=== PATIENT | male | born 1990 | race Caucasian/White ===

== ENCOUNTER 2017-11-15 22:46 | Inpatient (IN) | payer BC, OTHER ==
[~2017-11-15] VITALS: Ht 175.3 cm; Wt 77.1 kg
--- NOTE | 2017-11-15 22:46 | NUR ---
BIBA TO ER BED 3
[2017-11-15 22:48] VITALS: BP 122/64
[2017-11-15] MEDS ORDERED: NACL 0.9% 2,000 ML IV SCH (22:55)
[2017-11-15] MEDS ORDERED: HYDR25CA1 PO (23:00)
--- NOTE | 2017-11-15 23:00 | NUR ---
EMS GAVE NARCAN 0.5MG IN THE FIELD
--- NOTE | 2017-11-15 23:00 | NUR ---
PT BIB [facility] C/O ALOC/OD/SZ POSS OD ON HYDROXYZINE PAMOATE 50MG DAILY/PRN. [facility]-BS103 HX DEPRESSION, SUICIDE ATTEMPT. NO N/V/D; SKIN IS PINK/WARM/DRY; AAOX4 WITH EVEN AND STEADY GAIT; LUNGS CLEAR BL; PT DENIES ANY FEVER, CP, SOB, OR COUGH AT THIS TIME; PATIENT STATES PAIN OF 0/10 AT THIS TIME; PATIENT POSITIONED FOR COMFORT; HOB ELEVATED; BEDRAILS UP X2; BED DOWN. ER MD MADE AWARE OF PT STATUS.
--- NOTE | 2017-11-15 23:10 | NUR ---
# 16 FR Napier catheter with 10 ml utilizing sterile technique. Immediate return of 100 ml YELLOW urine noted. Bedside drainage bag placed below level of bladder. Urine sample collected and sent to lab. Pt tolerated procedure WELL.
--- NOTE | 2017-11-15 23:15 | NUR ---
2 LITERS NS BOLUS GIVEN PER MD ORDER, UNABLE TO CHART ON EMAR. IT CALLED AND WORKING ON IT.
--- NOTE | 2017-11-15 23:17 | NUR ---
ER MD DR ROBB CALLED POISON CONTROL-MONITOR FOR SZ, SOB. SCOTTIE BRONSON AND JOSEPH MENDOZA SPOKE TO PT FAMILY.
--- NOTE | 2017-11-15 23:20 | NUR ---
CT AT BEDSIDE
[2017-11-15 23:41] LABS: BARBITURATE, URINE NEG. ng/ml (NEG <=200); BENZODIAZEPINE, URINE NEG. ng/mL (NEG <=200); CANNABINOID, URINE NEG. ng/mL (NEG <=50); COCAINE, URINE NEG. ng/mL (NEG <=300); OPIATE, URINE NEG. ng/mL (NEG <=2000); PHENCYCLIDINE SCREEN,URINE NEG. ng/mL (NEG <=25)
[2017-11-16] VITALS (10 sets, daily range): BP systolic 111–140; BP diastolic 57–103
--- NOTE | 2017-11-16 00:05 | NUR ---
DAD AT BEDSIDE. PT RESTINC COMFORTABLY.
--- NOTE | 2017-11-16 00:05 | NUR ---
NS 2 LITERS COMPLETED W/O PROBLEMS.
[2017-11-16 00:06] LABS: BASOPHILS # (AUTO) 0.1 K/uL (0.00-0.22); BASOPHILS % (AUTO) 0.9 % (0.0-2.0); EOSINOPHILS # (AUTO) 0.1 K/uL (0-0.4); EOSINOPHILS % (AUTO) 0.9 % (0.0-4.0); HEMATOCRIT 41.9 % (36-52); HEMOGLOBIN 14.1 g/dL (12.0-18.0); LYMPHOCYTES # (AUTO) 0.5 K/uL (2.0-11.5); MEAN CORPUSCULAR HEMOGLOBIN 30 pg (27-31); MEAN CORPUSCULAR HGB CONC 34 g/dL (33-37); MEAN CORPUSCULAR VOLUME 89 fL (80-94); MONOCYTES # (AUTO) 0.3 K/uL (0.8-1.0); MONOCYTES % (AUTO) 3.3 % (1.7-9.3); NEUTROPHILS # (AUTO) 8.6 K/uL (1.8-7.7); NEUTROPHILS % (AUTO) 89.5 % (42.2-75.2); PLATELET COUNT (AUTO) 233 K/uL (140-450); RED BLOOD CELL COUNT(AUTO) 4.69 MIL/uL (4.20-6.10); RED CELL DISTRIBUTION WIDTH 11.9 % (11.6-13.7); WHITE BLOOD COUNT (AUTO) 9.6 K/uL (4.8-10.8)
[2017-11-16 00:19] LABS: APPEARANCE,URINE CLEAR (CLEAR); BILIRUBIN,URINE NEGATIVE (NEGATIVE); BLOOD, URINE NEGATIVE (NEGATIVE); COLOR,URINE YELLOW (YELLOW); LEUKOCYTE ESTERASE ,URINE NEGATIVE (NEGATIVE); NITRITE, URINE NEGATIVE (NEGATIVE); PH,URINE 5.5 (5.0-9.0); UGLUCOSE NEGATIVE (NEGATIVE)
[2017-11-16 00:23] LABS: ACETAMINOPHEN 6.3 ug/ml (10-30); ALBUMIN 4.5 g/dL (3.4-5.0); ASPARTATE AMINOTRANSFERASE 20 U/L (15-37); CARBON DIOXIDE 24.1 mmol/L (21-32); CHLORIDE 110 mmol/L (98-107); CREATININE 1.3 mg/dL (0.7-1.3); GFR ARICAN-AMERICAN 85 mL/min (>90); GLUCOSE 112 mg/dL (74-106); POTASSIUM 4.1 mmol/L (3.5-5.1); SODIUM SERUM 147 mmol/L (136-145); TOTAL BILIRUBIN 0.4 mg/dL (0.0-1.0); UREA NITROGEN, BLOOD 14 mg/dL (7-18)
[2017-11-16 00:30] LABS: MAGNESIUM 1.6 mg/dL (1.8-2.4); THYROID STIMULATING HORMONE 4.01 uIU/mL (0.34-3.74)
[2017-11-16 00:34] LABS: SALICYLATE < 2.8 mg/dL (2.8-20.0)
[2017-11-16 00:56] LABS: LYMPHOCYTES % (AUTO) 5.4 % (20.5-51.1)
[2017-11-16 01:09] LABS: HYALINE CASTS, URINE 0-10 /LPF (None Seen); RBC,URINE 0-5 (RARE) /HPF (0-5); WBC,URINE 0-5 (RARE) /HPF (0-5)
[2017-11-16] MEDS ORDERED: ONDANSETRON 4 MG/2 ML VIAL IM/IVP PRN (01:20)
[2017-11-16] MEDS ORDERED: HYDROcodone/APAP 7.5/325 MG 1 TAB PO PRN (01:20)
[2017-11-16] MEDS ORDERED: LORazepam 0.5 MG TAB PO PRN (01:20)
[2017-11-16] MEDS ORDERED: DOCUSATE SODIUM 100 MG GELCAP PO PRN (01:20)
[2017-11-16] MEDS ORDERED: ACETAMINOPHEN 325 MG TAB PO PRN (01:20)
[2017-11-16] MEDS ORDERED: ZOLPIDEM 5 MG TAB PO PRN (01:20)
[2017-11-16] MEDS ORDERED: MORPHINE SULFATE 2 MG/ML SYR IVP PRN (01:20)
--- NOTE | 2017-11-16 01:26 | NUR ---
FAMILY AT BEDSIDE, PT ALERT, TALKING AND ANSWERING QUESTIONS.
[2017-11-16 01:46] LABS: PROTHROMBIN TIME 11.5 secs (10.8-13.4)
--- NOTE | 2017-11-16 01:54 | NUR ---
Patient will be admitted to care of DR ESCOBEDO. Admited to ICU. Will go to room6. Belongings list completed. Report to JOSEPH CRUZ.
[2017-11-16 01:55] LABS: CHOL/HDL RATIO 3.7 (1-4.5); FREE T4 (FREE THYROXINE) 1.02 ng/dL (0.76-1.46); PHOSPHORUS 3.9 mg/dL (2.5-4.9)
--- NOTE | 2017-11-16 01:55 | NUR ---
RECEIVED PT TRANSFERRED FROM ER VIA [facility], OBTAINED REPORT FORM JOSEPH TRONCOSO AT BEDSIDE, PT IS AAOX1, ABLE TO FOLLOW SIMPLE COMMANDS, SLURRED AND DELAYED SPEECH, DENIES PAIN, NO S/S OF DISTRESS, CLEAR LUNG SOUNDS, ON RA. DENIES CHEST PAIN, ST ON LIBRARIAN ASSISTANT, SOFT ABDOMEN WITH ACTIVE BOWEL SOUNDS, BAGLEY CATHETER IN PLACE WITH CLEAR YELLOW URINE NOTED, SKIN IS INTACT, WARM AND DRY TO TOUCH, PERIPHERAL LINE TO RIGHT FOREARM 18GA, PATENT AND SL. ABLE TO MOVE ALL EXTREMITIES, SLIGHT GENERALIZED WEAKNESS NOTED. REORIENTED PT TO ROOM AND POC, PT IS CONFUSED AT THIS TIME, HOB ELEVATED 30 DEGREES, SAFETY PRECAUTION AND SEIZURE PRECAUTION IN PLACE, WILL CONTINUE TO MONITOR.
[2017-11-16] MEDS: NACL 0.9% 1,000 ML IV SCH ×2 (02:11→10:45)
[2017-11-16] MEDS ORDERED: MIDAZOLAM 2 MG/2 ML VIAL IV SCH (03:30)
--- NOTE | 2017-11-16 04:00 | NUR ---
PT IS REST IN BED WITH ANXIETY, FAMILY MEMBERS AT BEDSIDE, DR. MARTIN ABLE TO ANSWER THEIR QUESTIONS. NO CHANGE OF CONDITION AT THIS TIME.
[2017-11-16] MEDS ORDERED: LORazepam 2 MG/ML VIAL IVP SCH (04:05)
--- NOTE | 2017-11-16 05:34 | NUR ---
DR. GARVIN ASSESS PT AT BEDSIDE.
--- NOTE | 2017-11-16 06:00 | NUR ---
NO CHANGE OF CONDITION AT THIS TIME, PT IS CALM, FATHER AT BEDSIDE.
[2017-11-16 06:09] LABS: BASOPHILS # (AUTO) 0.2 K/uL (0.00-0.22); BASOPHILS % (AUTO) 2.1 % (0.0-2.0); EOSINOPHILS # (AUTO) 0.1 K/uL (0-0.4); EOSINOPHILS % (AUTO) 0.9 % (0.0-4.0); HEMATOCRIT 42.7 % (36-52); HEMOGLOBIN 14.4 g/dL (12.0-18.0); LYMPHOCYTES # (AUTO) 0.7 K/uL (2.0-11.5); LYMPHOCYTES % (AUTO) 7.5 % (20.5-51.1); MEAN CORPUSCULAR HEMOGLOBIN 30 pg (27-31); MEAN CORPUSCULAR HGB CONC 34 g/dL (33-37); MEAN CORPUSCULAR VOLUME 90 fL (80-94); MONOCYTES # (AUTO) 0.5 K/uL (0.8-1.0); MONOCYTES % (AUTO) 5.2 % (1.7-9.3); NEUTROPHILS # (AUTO) 8.3 K/uL (1.8-7.7); NEUTROPHILS % (AUTO) 84.3 % (42.2-75.2); PLATELET COUNT (AUTO) 227 K/uL (140-450); RED BLOOD CELL COUNT(AUTO) 4.76 MIL/uL (4.20-6.10); RED CELL DISTRIBUTION WIDTH 12.1 % (11.6-13.7); WHITE BLOOD COUNT (AUTO) 9.8 K/uL (4.8-10.8)
[2017-11-16 06:40] LABS: ACETAMINOPHEN 1.1 ug/ml (10-30); ALBUMIN 4.7 g/dL (3.4-5.0); ANION GAP 15.5 (8-16); CREATININE 1.1 mg/dL (0.7-1.3); MAGNESIUM 1.6 mg/dL (1.8-2.4); PHOSPHORUS 4.9 mg/dL (2.5-4.9); POTASSIUM 3.5 mmol/L (3.5-5.1); TOTAL BILIRUBIN 0.6 mg/dL (0.0-1.0)
[2017-11-16] MEDS ORDERED: MECLIZINE 25 MG TAB PO PRN (06:45)
--- NOTE | 2017-11-16 07:20 | NUR ---
REPORT GIVEN TO JOSEPH SANTILLAN AT BEDSIDE FOR CONTINUE OF CARE, PT IS IN STABLE CONDITION AT THIS TIME.
--- NOTE | 2017-11-16 08:00 | NUR ---
AWAKE, DOES NOT FOLLOW COMMANDS, SPEECH INCOMPREHENSIBLE. CID BUT WITH SL WEAKNESS. IV 0.9NS INFUSING 100 ML/HR VIA RT FOREARM. IV SITE INTACT AND PATENT. BAGLEY CATH IN PLACE DRAINING CLEAR YELLOWISH URINE.
--- NOTE | 2017-11-16 08:20 | NUR ---
DR. VELAZQUEZ HERE TO SEE AND EXAMINE PT. PT'S FATHER AT BEDSIDE.
--- NOTE | 2017-11-16 08:25 | NUR ---
PATIENT HAS BEEN SCREENED AND CATEGORIZED LOW NUTRITION RISK. PATIENT WILL BE SEEN IN 7 DAYS. 11/22/[address]
--- NOTE | 2017-11-16 09:30 | NUR ---
PATIENT IS MORE AWAKE AT THIS TIME.
[2017-11-16] MEDS ORDERED: MAG SULF 2000 MG/WATER PREMIX 100 ML IV SCH (09:45)
[2017-11-16] MEDS: NACL 0.45% 1,000 ML IV SCH ×2 (11:38→21:48)
--- NOTE | 2017-11-16 11:45 | NUR ---
PATIENT'S FATHER REQUESTED TO SPEAK TO RESIDENT IN CHARGE OF HIS SON. RESIDENT PHYSICIAN DR. GARVIN MADE AWARE.
[2017-11-16] MEDS ORDERED: PROBIOTIC SCREEN 1 EA MISC MC PRN (12:25)
--- NOTE | 2017-11-16 12:28 | NUR ---
CM NOTE PER PERSONAL COUNSELOR LUIS, REVIEWS SHOULD ONLY BE SENT TO [facility]. INITIAL REVIEW FAXED TO [facility] [phone] D[facility] # [phone].
--- NOTE | 2017-11-16 13:00 | NUR ---
RESIDENT PHYSICIAN, DR. GARVIN TALKING TO PATIENT'S MOTHER GOPI REGARDING UPDATES ON PATIENT'S CONDITION.
--- NOTE | 2017-11-16 19:23 | NUR ---
REPORT GIVEN TO JUSTICE TURNER RN. PATIENT WILL BE TRANSFERRED TO TELE UNIT RM 124B
--- NOTE | 2017-11-16 19:40 | NUR ---
RECEIVED REPORT FROM PROMOTIONS ASSOCIATE NURSE. PT RESTING IN BED WITH EYES CLOSED. AROUSES EASILY. NO S/S OF DISTRESS OBSERVED. BAGLEY CATH IN PLACE DRAINING LIGHT YELLOW URINE VIA GRAVITY. CALL LIGHT WITHIN REACH. WILL CONTINUE TO MONITOR.
--- NOTE | 2017-11-16 21:50 | NUR ---
NEW BAG OF NS 0.45% STARTED. NO DISTRESS NOTED. CALL LIGHT WITHIN REACH.
--- NOTE | 2017-11-16 22:05 | NUR ---
PT AWAKE, LYING COMFORTABLY IN BED. NO C/O PAIN OR DISCOMFORT. CALL LIGHT WITHIN REACH.
[2017-11-17] VITALS: BP 116/68
--- NOTE | 2017-11-17 00:40 | NUR ---
PT SLEEPING. NO S/S OF DISTRESS. SAFETY PRECAUTION IN PLACE. CALL LIGHT WITHIN REACH.
--- NOTE | 2017-11-17 03:05 | NUR ---
PT SLEEPING BUT WAKES EASILY. RESPIRATIONS REGULAR, EVEN AND UNLABORED.
[2017-11-17 04:00] VITALS: BP 117/66
--- NOTE | 2017-11-17 05:30 | NUR ---
PT IN BED, AWAKE. NO C/O PAIN OR DISCOMFORT. CALL LIGHT WITHIN REACH.
[2017-11-17 06:27] LABS: T4 (THYROXINE) 6.8 ug/dL (4.5-12.0)
--- NOTE | 2017-11-17 07:25 | NUR ---
ENDORSED PT TO DAY SHIFT NURSE. PT IN STABLE CONDITION.
[2017-11-17 07:56] LABS: BASOPHILS # (AUTO) 0.2 K/uL (0.00-0.22); BASOPHILS % (AUTO) 3.8 % (0.0-2.0); EOSINOPHILS # (AUTO) 0.1 K/uL (0-0.4); EOSINOPHILS % (AUTO) 1.2 % (0.0-4.0); HEMATOCRIT 43.2 % (36-52); HEMOGLOBIN 14.7 g/dL (12.0-18.0); LYMPHOCYTES # (AUTO) 1.3 K/uL (2.0-11.5); LYMPHOCYTES % (AUTO) 20.2 % (20.5-51.1); MEAN CORPUSCULAR HEMOGLOBIN 31 pg (27-31); MEAN CORPUSCULAR HGB CONC 34 g/dL (33-37); MEAN CORPUSCULAR VOLUME 91 fL (80-94); MONOCYTES # (AUTO) 0.5 K/uL (0.8-1.0); NEUTROPHILS # (AUTO) 4.3 K/uL (1.8-7.7); NEUTROPHILS % (AUTO) 66.8 % (42.2-75.2); PLATELET COUNT (AUTO) 207 K/uL (140-450); RED BLOOD CELL COUNT(AUTO) 4.78 MIL/uL (4.20-6.10); WHITE BLOOD COUNT (AUTO) 6.4 K/uL (4.8-10.8)
--- NOTE | 2017-11-17 08:00 | NUR ---
RECEIVED PATIENT REPORT FROM JOSEHP PEREA AT BEDSIDE. PATIENT ALERT AWAKE ORIENTED X4, DENIES PAIN AT THIS TIME. INITIAL ASSESSMENT INITIATED. WITH IVF ON GOING AND INFUSING WELL. ON MONITOR SHOWS SR. CALL LIGHT WITHIN REACH. VITALS STABLE. WILL CONTINUE TO MONITOR.
--- NOTE | 2017-11-17 08:20 | NUR ---
ROUNDS WITH MD AT BEDSIDE AND DISCUSSED THE PLAN OF CARE.
[2017-11-17 08:29] LABS: ALBUMIN 4.4 g/dL (3.4-5.0); ASPARTATE AMINOTRANSFERASE 20 U/L (15-37); BILIRUBIN,DIRECT 0.1 mg/dL (0.0-0.3)
[2017-11-17 08:31] LABS: ACETAMINOPHEN < 0.5 ug/ml (10-30); ANION GAP 15.5 (8-16); CARBON DIOXIDE 26.5 mmol/L (21-32)
[2017-11-17 08:33] VITALS: BP 129/80
--- NOTE | 2017-11-17 08:52 | NUR ---
PATIENT CHANGED TO MS STATUS, REMOVED TELEMETRY BOX, BAGLEY CATHETER REMOVED.
--- NOTE | 2017-11-17 09:00 | NUR ---
PATIENT ASSISTED TO THE BATHROOM, AMBULATE WELL. PATIENT FATHER AT BEDSIDE TALKING TO THE PATIENT. WILL CONTINUE TO MONITOR.
--- NOTE | 2017-11-17 10:15 | NUR ---
BELEN FROM POISON CONTROL CALLED AND ASKED FOR UPDATES.
--- NOTE | 2017-11-17 11:01 | NUR ---
FAXED CONCURRENT REVIEW TO [facility] [phone] PHONE [facility]ARCI [phone]
--- NOTE | 2017-11-17 14:38 | NUR ---
PATIENT AMBULATING IN THE HALLWAY ACCOMPANIED BY HIS FATHER, DENIES PAIN. WILL CONTINUE TO MONITOR.
[2017-11-17 16:00] VITALS: BP 133/84
--- NOTE | 2017-11-17 16:35 | NUR ---
SEEN BY DR. DELONG AND EVALUATED PATIENT, WITH ORDER TO D/C FROM HER STANDPOINT, DR. GARVIN MADE AWARE.
--- NOTE | 2017-11-17 17:40 | NUR ---
DR. GARVIN SPOKE TO PT. MOTHER REGARDING PT. D/C.
[2017-11-17] MEDS ORDERED: SERT50TA PO (17:50)
--- NOTE | 2017-11-17 18:15 | NUR ---
D/C HOME VIA WHEELCHAIR ACCOMPANIED BY PT. MOTHER. AWAKE, ALERT, AND ORIENTED X4. SPEECH CLEAR. NO C/O PAIN. NO SOB, NOTED. CALM, QUIET AND COOPERATIVE. IN STABLE CONDITION. INFORMED CHARGE NURSE TRAVIS JIANG.
== END 2017-11-17 18:15 | disposition home or self-care (01) | DRG 917 ==
LOC: MED 22:46 → MIC 11-16 01:19 → MTU 11-16 19:50
PROVIDERS: ADMIT Family Medicine Sports Medicine; ATTEND Family Medicine Sports Medicine
DX: T39.1X1A Poisoning by 4-Aminophenol derivatives, accidental (unintentional), initial encounter (principal); N17.0 Acute kidney failure with tubular necrosis; I63.411 Cerebral infarction due to embolism of right middle cerebral artery; G92 Toxic encephalopathy; F33.1 Major depressive disorder, recurrent, moderate; E87.0 Hyperosmolality and hypernatremia; G90.9 Disorder of the autonomic nervous system, unspecified; T45.0X1A Poisoning by antiallergic and antiemetic drugs, accidental (unintentional), initial encounter; Z91.5 Personal history of self-harm; Z91.14 Patient's other noncompliance with medication regimen; Y92.89 Other specified places as the place of occurrence of the external cause; E02 Subclinical iodine-deficiency hypothyroidism; E83.42 Hypomagnesemia; E78.5 Hyperlipidemia, unspecified
CPT/HCPCS: 36415; 51702; 70450; 71045; 80048; 80053; 80076; 80305; 81001; 82150; 83036; 83605; 83690; 83735; 83880; 84100; 84436; 84439; 84443; 84479; 84484; 85025; 85610; 85730; 87040; 87081; 93005; 93880; 96360; 99285; G0480; G0482; J2060; J2250; J3475; J7030; Q0092

== ENCOUNTER 2017-12-07 01:45 | Inpatient (IN) | payer BC ==
[~2017-12-07] VITALS: Ht 177.8 cm; Wt 88.6 kg
[~2017-12-07 01:45] MED LIST: HYDR25CA1 PO; SERT50TA PO
[2017-12-07 01:50] VITALS: BP 144/91
--- NOTE | 2017-12-07 02:05 | NUR ---
TO ER BED 1
--- NOTE | 2017-12-07 02:06 | NUR ---
REPORTED TO POISON CONTROL AND SPOKEN TO TREVOR , AND ADVISES IVF, EKG TO LOOK FOR WIDE QRS INTERVAL,( TO GIVE SODUIM BICARBONATE ), ATIVAN FOR SEIZURES, STAT ASA, AND TYLENOL LEVEL.TO OBSERVE FOR HALLCINATION AND SX.
[2017-12-07] MEDS ORDERED: NACL 0.9% 1,000 ML IV ONE (02:30)
--- NOTE | 2017-12-07 02:30 | NUR ---
PT IS BIB FAMILY FOR DRUG OVERDOSE, PER FAMILY PT ATTEMTPED SUICIDE 3 WEEKS AGO IN THE SAME MANNER, PT TOOK COLD AND FLU MEDICATION, SLEEPING AID PILLS, AND TYLENOL PM AROUND 5PM YESTERDAY PER FAMILY. PT IS DEPRESSED FROM HIS DOG DYING ON SHAHNAZ. PER FAMILY PT DOES NOT HAVE FRIENDS AND HAS HX OF MAJOR DEPRESSION. PT IS ABLE TO AMBULATE, UNSTEADY GAIT. PT IS AA&O TO HIMSELF, BIRTHDAY, AND LOCATION. PT HAS DRYNESS NOTED TO LIPS. PT BELONGINGS ARE W/ FAMILY. PT IS IN BED SIDE RAILS UP X2, WILL CONTINUE TO MONITOR.
--- NOTE | 2017-12-07 02:45 | NUR ---
PT TAKES SERTRALINE 50MG ONCE DAILY, AND HYDROXYZINE HCL 25MG ONCE DAILY. PT HAS NOT TAKEN HYDROXYZINE FOR 1 WEEK .
[2017-12-07 02:48] LABS: BASOPHILS # (AUTO) 0.1 K/uL (0.00-0.22); BASOPHILS % (AUTO) 1.5 % (0.0-2.0); EOSINOPHILS % (AUTO) 0.3 % (0.0-4.0); HEMATOCRIT 43.6 % (36-52); HEMOGLOBIN 14.7 g/dL (12.0-18.0); LYMPHOCYTES # (AUTO) 0.9 K/uL (2.0-11.5); LYMPHOCYTES % (AUTO) 14.7 % (20.5-51.1); MEAN CORPUSCULAR HEMOGLOBIN 30 pg (27-31); MEAN CORPUSCULAR HGB CONC 34 g/dL (33-37); MEAN CORPUSCULAR VOLUME 89 fL (80-94); MONOCYTES # (AUTO) 0.1 K/uL (0.8-1.0); MONOCYTES % (AUTO) 1.9 % (1.7-9.3); NEUTROPHILS # (AUTO) 5.2 K/uL (1.8-7.7); PLATELET COUNT (AUTO) 263 K/uL (140-450); RED BLOOD CELL COUNT(AUTO) 4.91 MIL/uL (4.20-6.10); RED CELL DISTRIBUTION WIDTH 11.9 % (11.6-13.7); WHITE BLOOD COUNT (AUTO) 6.3 K/uL (4.8-10.8)
[2017-12-07 02:59] LABS: ANION GAP 14.4 (8-16); CARBON DIOXIDE 28.3 mmol/L (21-32); CHLORIDE 104 mmol/L (98-107); CREATININE 1.2 mg/dL (0.7-1.3); GFR ARICAN-AMERICAN 93 mL/min (>90); GLUCOSE 140 mg/dL (74-106); POTASSIUM 3.7 mmol/L (3.5-5.1); SODIUM SERUM 143 mmol/L (136-145); UREA NITROGEN, BLOOD 10 mg/dL (7-18)
[2017-12-07 03:04] LABS: NEUTROPHILS % (AUTO) 81.6 % (42.2-75.2)
[2017-12-07 03:05] LABS: ALBUMIN 4.6 g/dL (3.4-5.0); ASPARTATE AMINOTRANSFERASE 21 U/L (15-37); SALICYLATE < 2.8 mg/dL (2.8-20.0); TOTAL BILIRUBIN 0.7 mg/dL (0.0-1.0)
[2017-12-07 03:50] LABS: APPEARANCE,URINE CLEAR (CLEAR); BILIRUBIN,URINE NEGATIVE (NEGATIVE); BLOOD, URINE NEGATIVE (NEGATIVE); COLOR,URINE YELLOW (YELLOW); LEUKOCYTE ESTERASE ,URINE NEGATIVE (NEGATIVE); NITRITE, URINE NEGATIVE (NEGATIVE); PH,URINE 6.5 (5.0-9.0); UGLUCOSE NEGATIVE (NEGATIVE)
[2017-12-07 04:06] LABS: BARBITURATE, URINE NEG. ng/ml (NEG <=200); BENZODIAZEPINE, URINE NEG. ng/mL (NEG <=200); CANNABINOID, URINE NEG. ng/mL (NEG <=50); COCAINE, URINE NEG. ng/mL (NEG <=300); OPIATE, URINE NEG. ng/mL (NEG <=2000); PHENCYCLIDINE SCREEN,URINE NEG. ng/mL (NEG <=25)
--- NOTE | 2017-12-07 04:27 | NUR ---
PT IS IN BED, RESTLESS, PT CONTINUES TO HAVE SPEECH THAT DOES NOT MAKE SENSE AND QUESTIONS THAT ARE NOT APPROPRIATE, PT IS COOPERATIVE, SISTER AND BROTHER AT BEDSIDE TALKING W/ PT.
[2017-12-07] MEDS ORDERED: LORazepam 1 MG TAB PO ONE (04:35)
--- NOTE | 2017-12-07 04:50 | NUR ---
PT GIVEN 2 TABS OF ATIVAN, PT SPIT OUT AND THREW 1/2 PILL ON FLOOR.
[2017-12-07] MEDS ORDERED: ONDANSETRON 4 MG/2 ML VIAL IVP PRN (05:30)
--- NOTE | 2017-12-07 05:35 | NUR ---
PT RESTING IN BED, LESS RESTLESS, WILL CONTINUE TO MONITOR
--- NOTE | 2017-12-07 05:44 | NUR ---
AWAITING ROOM TO BE READY, HAVE ADMITING ORDERS.
[2017-12-07 06:20] VITALS: BP 139/89
--- NOTE | 2017-12-07 06:20 | NUR ---
Admitted from ER, with chief complaint of ALOC, DX 5150, BENADRYL OD. PT FAMILY AT BEDSIDE. 27 y/o, Male, AWAKE, CONFUSED, SLURRING WORDS, CALM AT THIS TIME BUT OCCASIONALLY TRIES TO GET OUT OF BED. VOCATIONAL REHABILITATION SUPERVISOR IN PLACE. DISCUSSED AND REVIEWED PLAN OF CARE WITH PT AND PT FAMILY WHO VERBALIZED UNDERSTANDING. IV ACCESS ASYMPTOMATIC, PATENT AND INTACT. WILL ADMINISTER IVF ORDERED. oriented to call light, bed, phone,television, bathroom, smoking policy, visiting hours, procedures, ID bracelet on. Belongings list checked. ALL NEEDS MET. 1:1 SITTER AT BEDSIDE WITH CLOSE MONITORING, ENVIRONMENT CHECKED. SAFETY MEASURES ENSURED. CALL LIGHT WITHIN REACH.
--- NOTE | 2017-12-07 06:25 | NUR ---
Patient will be admitted to care of DR. JANG. Admited to TELE. Will go to room 110-A. Belongings list completed. Report to JACKI.
[2017-12-07 06:36] LABS: PROTHROMBIN TIME 11.6 secs (10.8-13.4)
[2017-12-07 06:47] LABS: CHOL/HDL RATIO 4.2 (1-4.5); FREE T4 (FREE THYROXINE) 1.1 ng/dL (0.76-1.46); MAGNESIUM 1.7 mg/dL (1.8-2.4); PHOSPHORUS 4.5 mg/dL (2.5-4.9); THYROID STIMULATING HORMONE 3.07 uIU/mL (0.34-3.74)
[2017-12-07] MEDS: NACL 0.9% 1,000 ML IV SCH ×4 (06:49→21:00)
--- NOTE | 2017-12-07 07:20 | NUR ---
ENDORSED PLAN OF CARE TO AM NURSE. CONDITION STABLE.
--- NOTE | 2017-12-07 07:22 | NUR ---
RECEIVED PATIENT REPORT AT BEDSIDE FROM NIGHT NURSE. PATIENT IS AWAKE ALERT AND ORIENTED X1 AND SHOWS NO S/S OF ACUTE DISTRESS ON ROOM AIR, PATIENT HAS NO C/O PAIN. IV NOTED ON THE LEFT FA WITH IVF'S INFUSING WELL. ON TELE MONITOR. SKIN INTACT. PATIENT WAS EXPLAINED POC, HOSPITAL ENVIRONMENT, AND USE OF CALL LIGHT FOR ASSISTANCE; HOWEVER PATIENT IS UNABLE TO COMPREHEND AT THIS TIME, HE DOES FOLLOW COMMANDS, REINFORCEMENT WILL BE NEEDED. FALL, SAFETY PRECAUTIONS ARE IN PLACE. BED IN LOW POSITION WITH CALL LIGHT WITHIN REACH.
[2017-12-07 08:05] VITALS: BP 138/90
--- NOTE | 2017-12-07 08:05 | NUR ---
DR JANG NOTIFIED OF PATIENT'S 140 HR. PHYSICIAN TO SEE PATIENT.
[2017-12-07] MEDS: PANTOPRAZOLE 40 MG INJ VIAL IVP SCH (08:41)
[2017-12-07] MEDS: DOCUSATE SODIUM 100 MG GELCAP PO SCH ×2 (08:42→21:00)
--- NOTE | 2017-12-07 08:42 | NUR ---
ADMINISTERED IVP PROTONIX 40 MG; DID NOT GIVE COLACE 100 MG PO BC PATIENT HAS FLAT AFFECT AND UNABLE TO RESPOND IF HE COULD SWALLOW MEDICATION. WILL NOTIFY 'S ONCE AVAILABLE.
--- NOTE | 2017-12-07 10:12 | NUR ---
PATIENT HAS BEEN SCREENED AND CATEGORIZED LOW NUTRITION RISK. PATIENT WILL BE SEEN WITHIN 7 DAYS OF ADMISSION. 12/13/[address]
[2017-12-07] MEDS ORDERED: MAGNESIUM OXIDE 400 MG TAB PO SCH (12:00)
--- NOTE | 2017-12-07 12:15 | NUR ---
PATIENT ASSISTED TO AMB TO RESTROOM, PATIENT'S HAS UNSTEADY GAIT AND NEEDS 2 PERSON ASSIST.
--- NOTE | 2017-12-07 12:55 | NUR ---
PATIENT BEING SEE BY DR BEDOYA.
--- NOTE | 2017-12-07 12:59 | NUR ---
ADMINISTERED SCHEDULED MEDICATIONS, PATIENT SWALLOWED WITHOUT DIFFICULTY. PATIENT'S FAMILY AT BEDSIDE ASSISTING WITH PATIENT'S ADL'S. SITTER AT BEDSIDE
[2017-12-07 13:04] VITALS: BP 127/85
--- NOTE | 2017-12-07 14:08 | NUR ---
CM NOTE PER ICE CREAM SERVER LUIS, REVIEWS SHOULD ONLY BE SENT TO [facility]. INITIAL REVIEW FAXED TO [facility] [phone] [facility] # [phone]
--- NOTE | 2017-12-07 15:05 | NUR ---
PATIENT FAMILY AT BEDSIDE, PATIENT IS AWAKE AND AGITATED, PICKING AT IV SITE. IV WAS WRAPPED IN GAUZE. PATIENT HAS FLAT AFFECT AND SHOWS NO S/S OF ACUTE DISTRESS ON ROOM AIR. BED IN LOW POSITION WITH CALL LIGHT WITHIN REACH.
[2017-12-07 16:00] VITALS: BP 138/89
--- NOTE | 2017-12-07 17:00 | NUR ---
PATIENT SHOWS NO S/S OF ACUTE DISTRESS ON ROOM AIR, PATIENT HAS SITTER AT BEDSIDE. BED IS LOW POSITION.
--- NOTE | 2017-12-07 19:15 | NUR ---
GAVE PATIENT REPORT AT BEDSIDE TO NIGHT NURSE, PATIENT ENDORSED IN STABLE CONDITION.
--- NOTE | 2017-12-07 19:20 | NUR ---
RECEIVED PT IN STABLE CONDITION FROM AM NURSE. AWAKE,ALERT AND ORIENTED X2-3 . ON TELE MONITOR. BEDREST. CAN BE UP WITH ASSISTANCE, WITH 1;1 SITTER DUE TO SUICIDAL IDEATION. ROOM CLOSED TO STATION HAS IVF INFUSING WELL ON THE LT FA#[id number]. CLEAR AND PATENT. BED ON LOW POSITION. WILL MONITOR CLOSELY .
--- NOTE | 2017-12-07 19:50 | NUR ---
MOTHER AT BEDSIDE. THEN PSYCHOLOGIST CAME TO ROOM SEE PT.
[2017-12-07 20:00] VITALS: BP 135/83
--- NOTE | 2017-12-07 20:30 | NUR ---
PT ASLEEP. SITTER AT BEDSIDE. WILL CONTINUE TO MONITOR.
--- NOTE | 2017-12-07 21:32 | NUR ---
PT SLEEPING WELL. ANESTHESIA ATTENDING HERE TO DRAW BLOOD FOR TROPONIN. WILL FOLLOW UP RESULT.
--- NOTE | 2017-12-07 22:30 | NUR ---
PT SLEEPING . NO S/S OF ANY DISCOMFORT NOTED. WILL CONTINUE TO MONITOR.
[2017-12-08 00:35] VITALS: BP 136/82
[2017-12-08] MEDS: NACL 0.9% 1,000 ML IV SCH ×3 (01:28→08:08)
[2017-12-08 04:18] VITALS: BP 126/77
--- NOTE | 2017-12-08 04:40 | NUR ---
RISHI FROM [facility] JUST CALLED AND SAID PT ALREADY HAS AVAILABLE ROOM AND CAN BE TRANSFERRED AT 0700 AM. I TOLD HER THAT WE STILL DON'T HAVE ORDER THAT PT IS CLEARED FOR TRANSFER TO PSYCHIATRIC FACILITY. SHE GOT PT MEDICAL INFORMATIONS AND SAID THE ADMITTING DR. ROSARIO IN [facility]. IRSHI SAID SHE HAS TO CALL KARENA FROM [facility] TO CLARIFY THIS.
--- NOTE | 2017-12-08 04:44 | NUR ---
TALKED TO DR. CARTER AND MADE HER AWARE ABOUT RISHI 'S CALL FOR AVAILABLE ROOM IN [facility]. SHE SAID SHE IS NOT AWARE OF IT AND PT IS NOT CLEARED YET FOR TRANSFER. SHE WILL ADDRESS THIS LATER THIS AM TO AM RESIDENT [facility] .
--- NOTE | 2017-12-08 04:52 | NUR ---
KARENA , FROM [facility] JUST CALLED AND I LET HIM KNOW THAT PT IS NOT CLEARED YET FOR TRANSFER TO PSYCHIATRIC FACILITY. HE SAID HE HAS TO CALL BACK RISHI FROM [facility] AND CALL ME AFTER.
--- NOTE | 2017-12-08 06:15 | NUR ---
TRNAFERRED TO ROOM 109A. STILL WITH 1;1 SITTER .
--- NOTE | 2017-12-08 07:00 | NUR ---
RECEIVED PATIENT REPORT AT BEDSIDE FROM NIGHT NURSE. PATIENT IS AWAKE ALERT AND ORIENTED X2 AND SHOWS NO S/S OF ACUTE DISTRESS ON ROOM AIR, PATIENT HAS NO C/O PAIN. IV NOTED ON THE LEFT FA PATENT AND INTACT, NO IVF'S CONNECT D/T PATIENT REFUSING IVF'S. ON TELE MONITOR. SKIN INTACT. PATIENT WAS EXPLAINED POC, HOSPITAL ENVIRONMENT, AND USE OF CALL LIGHT FOR ASSISTANCE; HOWEVER PATIENT IS UNABLE TO COMPREHEND AT THIS TIME, HE DOES FOLLOW COMMANDS, REINFORCEMENT WILL BE NEEDED. FALL, SAFETY PRECAUTIONS ARE IN PLACE. 1:1 SITTER AT BEDSIDE, BED IN LOW POSITION.
[2017-12-08 07:05] LABS: BASOPHILS # (AUTO) 0.2 K/uL (0.00-0.22); BASOPHILS % (AUTO) 4.8 % (0.0-2.0); EOSINOPHILS # (AUTO) 0.1 K/uL (0-0.4); EOSINOPHILS % (AUTO) 2.3 % (0.0-4.0); HEMATOCRIT 39.6 % (36-52); HEMOGLOBIN 13.8 g/dL (12.0-18.0); LYMPHOCYTES # (AUTO) 1.5 K/uL (2.0-11.5); MEAN CORPUSCULAR HEMOGLOBIN 31 pg (27-31); MEAN CORPUSCULAR HGB CONC 35 g/dL (33-37); MEAN CORPUSCULAR VOLUME 89 fL (80-94); MONOCYTES # (AUTO) 0.5 K/uL (0.8-1.0); MONOCYTES % (AUTO) 10.4 % (1.7-9.3); NEUTROPHILS # (AUTO) 2.4 K/uL (1.8-7.7); NEUTROPHILS % (AUTO) 50.5 % (42.2-75.2); PLATELET COUNT (AUTO) 192 K/uL (140-450); RED BLOOD CELL COUNT(AUTO) 4.44 MIL/uL (4.20-6.10); RED CELL DISTRIBUTION WIDTH 12.1 % (11.6-13.7); WHITE BLOOD COUNT (AUTO) 4.7 K/uL (4.8-10.8)
--- NOTE | 2017-12-08 07:07 | NUR ---
ENDORSED PT IN STABLE CONDITION TO AM NURSE.
[2017-12-08 07:42] VITALS: BP 123/74
[2017-12-08 08:01] LABS: MAGNESIUM 1.9 mg/dL (1.8-2.4); PHOSPHORUS 3.1 mg/dL (2.5-4.9)
[2017-12-08 08:08] LABS: POTASSIUM 4.1 mmol/L (3.5-5.1)
[2017-12-08 08:09] LABS: CARBON DIOXIDE 29.1 mmol/L (21-32)
[2017-12-08] MEDS: PANTOPRAZOLE 40 MG INJ VIAL IVP SCH (08:17)
[2017-12-08] MEDS: DOCUSATE SODIUM 100 MG GELCAP PO SCH (08:18)
--- NOTE | 2017-12-08 08:20 | NUR ---
PATIENT IS MORE AWAKE, FATHER AT BEDSIDE, PATIENT IS AAOX3 TO PERSON, PLACE, AND SITUATION. PATIENT DENIES SUICIDAL THOUGHTS, VISUAL AND AUDITORY HALLUCINATIONS. PATIENT WAS EDUCATED ON MEDICATIONS SCHEDULED TO GIVE THIS AM AND REFUSED IV PROTONIX 40 IVP AND COLACE 100 MG PO, STATED " I DON'T NEED THEM." PATIENT EDUCATED ON THE BENEFITS AND SIDE EFFECTS OF MEDICATIONS, PATIENT INSISTED HE DOES NOT NEED THEM, PATIENT GIVEN ZOLOFT 50 MG PO DAILY. PATIENT SWALLOWED WITHOUT DIFFICULTY, ALL NEEDS MET AT THIS TIME.
[2017-12-08] MEDS ORDERED: SERTRALINE 50 MG TAB PO SCH (09:00)
--- NOTE | 2017-12-08 09:10 | NUR ---
SPOKE WITH DR RUBI REGARDING PATIENT REFUSAL OF IVF'S STATED, "THAT'S FINE."
--- NOTE | 2017-12-08 09:43 | NUR ---
PATIENT IS RESTING COMFORTABLY IN BED, SHOWS NO S/S OF ACUTE DISTRESS ON ROOM AIR, PATIENT'S NEEDS MET AT THIS TIME, BED IN LOW POSITION.
--- NOTE | 2017-12-08 10:30 | NUR ---
SPOKE WITH LATESHA FROM [facility] [phone], STATED "PATIENT STILL HAS AVAILABLE ROOM IN UNIT 2B UNDER DR. ETIENNE. WHEN HE IS MEDICALLY CLEARED PLEASE CALL TO NOTIFY US."
--- NOTE | 2017-12-08 10:46 | NUR ---
SPOKE WITH STEVE FROM POISON CONTROL AND UPDATED HIM ON PATIENT'S STATUS, STEVE STATED, "HE IS CLEARED FROM OUR STAND POINT."
--- NOTE | 2017-12-08 11:50 | NUR ---
PATIENT IS RESTING COMFORTABLY IN BED, SHOWS NO S/S OF ACUTE DISTRESS ON ROOM AIR, PATIENT'S NEEDS MET AT THIS TIME, BED IN LOW POSITION.
[2017-12-08 12:00] VITALS: BP 131/78
--- NOTE | 2017-12-08 12:03 | NUR ---
CM NOTE PER LATESHA OF [facility] PH# [phone] THEY HAVE ACCEPTED PATIENT AND GOING TO UNIT [address] UND[address] ETIENNE. PCS FORM FAXED TO [facility] [phone]. PER GABE OF [facility] PH# [phone] ENVIRONMENTAL RESOURCE SPECIALIST 1300 TIME TODAY GOING TO [facility]. DR. MARTIN AND VALERIA RUIZ AWARE. Addendum: 12/08/17 at 1356 by Ilsa Soriano CM PER [facility] CM [facility] PH# [phone], FOR [facility] AUTH# [id number]. CHRISTOPHER OF [facility] PH# [phone] AWARE.
--- NOTE | 2017-12-08 12:23 | NUR ---
SPOKE WITH LATESHA FROM [facility] AND NOTIFIED PATIENT WILL BE DISCHARGED FROM HOSPITAL WITH [facility] AT 1300.
--- NOTE | 2017-12-08 13:24 | NUR ---
SPOKE WITH DR BEDOYA AND DR RUBI REGARDING IF OKAY TO TAKE PATIENT OFF TELE, 'Jesús STATED, " YES."
--- NOTE | 2017-12-08 13:25 | NUR ---
PATENT WAS GIVEN ALL DISCHARGE PAPERWORK AND INSTRUCTIONS. ALL PAPERWORK SIGNED, PATIENT VERBALIZED UNDERSTANDING OF CONTINUITY OF CARE. IV DISCONTINUED WITH CANNULA INTACT. WRISTBANDS AND TELE BOX REMOVED, PATIENT IN STABLE CONDITION. PATIENT HAS SITTER AT BEDSIDE, CHANGED INTO DONATED CLOTHES, MOTHER AT BEDSIDE. [facility] IS TO ARRIVE SOON.
--- NOTE | 2017-12-08 13:48 | NUR ---
[facility] ARRIVED ON UNIT, PATIENT'S MOTHER PRESENT AT SIDE. PATIENT LEFT UNIT IN [facility] WITH [facility] IN STABLE CONDITION.
== END 2017-12-08 13:48 | DRG 917 ==
LOC: MED 01:45 → MTU 05:33
PROVIDERS: ADMIT Family Medicine Sports Medicine; ATTEND Family Medicine Sports Medicine
DX: T45.0X2A Poisoning by antiallergic and antiemetic drugs, intentional self-harm, initial encounter (principal); G92 Toxic encephalopathy; F33.2 Major depressive disorder, recurrent severe without psychotic features; E78.5 Hyperlipidemia, unspecified; F41.1 Generalized anxiety disorder; J45.909 Unspecified asthma, uncomplicated; F41.0 Panic disorder [episodic paroxysmal anxiety]; Z91.19 Patient's noncompliance with other medical treatment and regimen; Z91.5 Personal history of self-harm; Z79.899 Other long term (current) drug therapy; Y92.89 Other specified places as the place of occurrence of the external cause
CPT/HCPCS: 36415; 71045; 80048; 80053; 80305; 81003; 82140; 82150; 82550; 83036; 83690; 83735; 83880; 84100; 84439; 84443; 84484; 85025; 85610; 85730; 87081; 93005; 96360; 99285; C1758; C9113; G0480; G0482; J7030; Q0092

== ENCOUNTER 2021-10-20 16:56 | Inpatient (IN) | payer BC, SELFPAY ==
[~2021-10-20] VITALS: Ht 177.8 cm; Wt 90.0 kg
--- NOTE | 2021-10-20 17:03 | NUR ---
AMBULATED TO ER BED 5
[2021-10-20 17:10] VITALS: BP 117/57
[2021-10-20] MEDS ORDERED: LORazepam 2 MG/ML VIAL ONE ×3 (17:10→17:17)
--- NOTE | 2021-10-20 17:11 | NUR ---
31 Y MALE BIB FATHER FROM HOME DUE TO INGESTION OF UNKNOWN AMOUNT OF BENADRYL AND ANTIFREEZE. PER PT "HE IS DEPRESSED AND ATTEMPTED SUCIDIE TO END HIS LIFE." PT ADMITS TO TAKING ABOUT 3 HANDFULS OF BENADRYL. PT STATED HE WANTS TO END HIS LIFE AT THIS TIME. PT ABLE TO AMBUALTE, BUT IS LETHARGIC AT THIS TIME. PT DENIES ANY CHEST PAIN, SOB, N/V/D AT THIS TIME. BREATH SOUNDS CLEAR AT THIS TIME. SKIN INTACT, BUT PATIENT IS DIAPHORETIC AT THIS TIME. PMH: UNKNOWN NKA
--- NOTE | 2021-10-20 17:15 | NUR ---
PT EXPERINCING SEZIURE BEDSIDE. PT PLACED ON SIDE, PUT ON 2L VIA NC, SUCTION BEDSIDE, 18G IV ESTABLISHED IN R HAND, 20 G IV ESTABLISHED IN L HAND. PT ALSO PLACED ON LIGHTING ADVISER AT THIS TIME.
--- NOTE | 2021-10-20 17:33 | NUR ---
SPOKE CIARA FROM POISON CONTROL. TOLD TO KEEP BENZO NEARBY TO ADMINISTER AND POSSIBLE INTUBATION IF PT CONTINUES TO HAVE SEIZURES. STAT EKG, OBSERVE FOR QS INTERVAL WIDENING, REPEAT EKG IN 3-4HRS. IF QS INTERVAL IS WIDENED AND HR IS >120 GIVE STAT BOLUS OF SODIUM BICARB. DRAW CHEMISTRY, SERUM OSMOL LEVEL, AND BLOOD ALCOHOL LEVEL. IF SERUM OSMOL >10 PT IS IN TOXIC STATE, ADDITIONAL STAT FOMEPIZOLE BOLUS OF SODIUM BICARB, UP TO 5 NEEDED. IF ALCOHOL LEVEL IS >100 DO NOT GIVE FOMEPIZOLE. REPEAT ALL LABS Q4-6HRS INCLUDING UDS. POSION CONTROL TO CALL BACK TO FOLLOW UP.
[2021-10-20 17:54] LABS: BASOPHILS # (AUTO) 0.1 K/uL (0.00-0.22); BASOPHILS % (AUTO) 0.5 % (0.0-2.0); EOSINOPHILS # (AUTO) 0.1 K/uL (0-0.4); EOSINOPHILS % (AUTO) 0.6 % (0.0-4.0); HEMATOCRIT 48.5 % (36-52); HEMOGLOBIN 16.2 g/dL (12.0-18.0); LYMPHOCYTES # (AUTO) 2.4 K/uL (2.0-11.5); LYMPHOCYTES % (AUTO) 25.4 % (20.5-51.1); MEAN CORPUSCULAR HEMOGLOBIN 32 pg (27-31); MEAN CORPUSCULAR HGB CONC 34 g/dL (33-37); MEAN CORPUSCULAR VOLUME 95.7 fL (80-94); MONOCYTES # (AUTO) 0.6 K/uL (0.8-1.0); MONOCYTES % (AUTO) 6.7 % (1.7-9.3); NEUTROPHILS # (AUTO) 6.4 K/uL (1.8-7.7); NEUTROPHILS % (AUTO) 66.8 % (42.2-75.2); PLATELET COUNT (AUTO) 260 K/uL (140-450); RED BLOOD CELL COUNT(AUTO) 5.07 MIL/uL (4.20-6.10); RED CELL DISTRIBUTION WIDTH 14.1 % (11.6-13.7); WHITE BLOOD COUNT (AUTO) 9.6 K/uL (4.8-10.8)
[2021-10-20 18:03] LABS: ALBUMIN 4.8 g/dL (3.4-5.0); ANION GAP 27.6 (8-16); ASPARTATE AMINOTRANSFERASE 27 U/L (15-37); CARBON DIOXIDE 17.4 mmol/L (21-32); CHLORIDE 103 mmol/L (98-107); CREATININE 1.2 mg/dL (0.6-1.3); GFR ARICAN-AMERICAN 91 mL/min (>90); GLUCOSE 106 mg/dL (74-106); SALICYLATE 2.8 mg/dL (2.8-20.0); SODIUM SERUM 145 mmol/L (136-145); TOTAL BILIRUBIN 0.8 mg/dL (0.0-1.0); UREA NITROGEN, BLOOD 10 mg/dL (7-18)
--- NOTE | 2021-10-20 18:06 | NUR ---
SPOKE WITH ELISE FROM POISON CONTROL TOLD TO GIVE FOMEPIZOLE STAT IF ALCOHOL LEVEL <100.
--- NOTE | 2021-10-20 18:21 | NUR ---
# 16 FR Urinary catheter inserted utilizing sterile technique. Immediate return of 20 ml YELLOW urine noted. Urine sample collected and sent to lab. Pt tolerated procedure WELL.
--- NOTE | 2021-10-20 18:22 | NUR ---
COVENOC GOLD, COVID DIPAK, AND URINE WALKED OVER TO LAB BY JOSEPH MARR
--- NOTE | 2021-10-20 18:24 | NUR ---
SPOKE WITH PT FATHER, JUST NOW TOLD PT TAKES PRESCRIBED DULOXEINE 60MG PO. PT FOUND WITH EMPTY BOTTLE BEFORE BROUGHT IN TO ER FOR OVERDOSE.
--- NOTE | 2021-10-20 18:36 | NUR ---
FATHER BEDSIDE WITH PATIENT
[2021-10-20] MEDS ORDERED: MAG SULF 2000 MG/WATER PREMIX 50 ML IV ONE (18:40)
[2021-10-20 18:56] LABS: APPEARANCE,URINE CLEAR (CLEAR); BILIRUBIN,URINE NEGATIVE (NEGATIVE); BLOOD, URINE NEGATIVE (NEGATIVE); COLOR,URINE YELLOW (YELLOW); LEUKOCYTE ESTERASE ,URINE NEGATIVE (NEGATIVE); NITRITE, URINE NEGATIVE (NEGATIVE); UGLUCOSE NEGATIVE (NEGATIVE)
--- NOTE | 2021-10-20 18:57 | NUR ---
PT CURRENTLY PLACED ON 5150 HOLD FOR SI BY JOSEPH LANGE
--- NOTE | 2021-10-20 18:58 | NUR ---
PT PLACED ON 5150 HOLD BY MYSELF FOR DTS. FATHER AT BEDSIDE AND HE WAS MADE AWARE OF THE HOLD. ORIGINAL HOLD PLACED IN PT CHART.
[2021-10-20] MEDS ORDERED: DULO60EC1 PO (19:03)
--- NOTE | 2021-10-20 19:03 | NUR ---
MED REC COMPLETED FOR PATIENT
[2021-10-20] MEDS ORDERED: NACL 0.9% 2,000 ML IV ONE ×2 (19:05→20:15)
--- NOTE | 2021-10-20 19:18 | NUR ---
PT MOVED TOP ER BED 7
--- NOTE | 2021-10-20 19:20 | NUR ---
Received report from Filomena RUIZ for continuity of care
--- NOTE | 2021-10-20 19:20 | NUR ---
Pt report given to JOSEPH BARAHONA. Transfer of care at this time.
[2021-10-20 19:23] LABS: ACETAMINOPHEN < 0.5 ug/ml (10-30)
--- NOTE | 2021-10-20 20:05 | NUR ---
Poison control called for update spoke with Mariposa. Informed that patient should be placed on Fomepizole stat as alcohol level is <3 and fomepizole should be given if less than 100. Also asked to get draws for ethylene glycol and methanol levels to send out. MICHELLE Christie and Marissa BRONSON aware.
[2021-10-20] MEDS ORDERED: ZOLPIDEM 5 MG TAB PO PRN (20:10)
[2021-10-20] MEDS ORDERED: DOCUSATE SODIUM 100 MG GELCAP PO PRN (20:10)
[2021-10-20] MEDS ORDERED: ONDANSETRON 4 MG/2 ML VIAL IM/IVP PRN (20:10)
[2021-10-20] MEDS ORDERED: ACETAMINOPHEN 325 MG TAB PO PRN (20:10)
[2021-10-20] MEDS ORDERED: guaiFENesin DM 200/20 MG-10 ML 10 ML UDC PO PRN (20:10)
[2021-10-20] MEDS ORDERED: HYDROcodone/APAP 7.5/325 MG 1 TAB PO PRN (20:10)
[2021-10-20] MEDS ORDERED: LORazepam 2 MG/ML VIAL IVP PRN (20:15)
--- NOTE | 2021-10-20 20:20 | NUR ---
Spoke with [facility] about fomepizole to order and make through pharmacy. but need to speak to pharmacy here in order to make medication. Marissa BRONSON made aware
[2021-10-20] MEDS ORDERED: SODIUM BICARBONATE 8.4% PFS 50 MEQ/50 ML SYR IVP ONE ×2 (20:25→21:05)
[2021-10-20] MEDS ORDERED: COMMUNICATION ORDER MC SCH (20:25)
--- NOTE | 2021-10-20 20:43 | NUR ---
Called house painter to have [facility] to bring/make fomepizole. supervisor fur dressing will call [facility] to come in.
--- NOTE | 2021-10-20 20:44 | NUR ---
patient able to follow commands such as moving fingers and tracking with eyes. MICHELLE Sin was at bedside for evaluation
--- NOTE | 2021-10-20 20:47 | NUR ---
Called Eder huerta, and spoke with Eder huerta himself for Ethlyene Glycol poisoning antidote Fomepizole 15mg/kg x1 dose now and then 10mg/kg x4 doses after 12 hours. Stated Eder will come to get the medication
--- NOTE | 2021-10-20 20:47 | NUR ---
[facility] called expressing concerns of orders of sodium bicarbonate. Order should be atleast 50meq-100meq dt hypocalcemia. MD Ann made aware and verified.
--- NOTE | 2021-10-20 21:02 | NUR ---
Spoke with after hours pharmacy [facility] to verify the Sodium bicarb abboject of 100meq per Marissa BRONSON orders.
[2021-10-20 21:10] LABS: PROTHROMBIN TIME 9.9 secs (10.8-13.4)
[2021-10-20 21:20] LABS: MAGNESIUM 1.9 mg/dL (1.8-2.4); PHOSPHORUS 4.1 mg/dL (2.5-4.9); THYROID STIMULATING HORMONE 2.53 uIU/mL (0.34-3.74)
[2021-10-20] MEDS: DEXT 5% /NACL 0.9% 1,000 ML IV SCH ×2 (21:45→22:50)
[2021-10-20] MEDS ORDERED: FOMEPIZOLE IV ONE (22:00)
[2021-10-20] MEDS ORDERED: NACL 0.9% IV ONE (22:00)
--- NOTE | 2021-10-20 22:14 | NUR ---
Patient will be admitted to care of Marissa BRONSON. Admited to ICU. Will go to room ICU Rm 8. Belongings list completed. Report to Erlin RUIZ.
--- NOTE | 2021-10-20 22:30 | NUR ---
RECEIVED PT FROM ER [facility]IA [facility].PT OPENS EYES NOT FOLLOWING COMMANDS.BLANKLY STARING.FLAT AFFECT.ST ON MONITOR.ON 02NC AT 2LPM, 02SAT 100%, NASAL CANNULA REMOVED AT THIS TIME.WILL CLOSELY MONITOR PT.W/PERIPHERAL IV TO LT HAND G18 INTACT AND G20 TO RT HAND INTACT.PT MAINTAINED ON NPO ORDERED.INCONTINENT OF URINE.W/GENERALIZED WEAKNESS TO ALL EXTREMITIES.NO S/SX OF PAIN NOTED.
[2021-10-20] MEDS: KCL 20 MEQ/WATER INJ PREMIX 200 ML IV PRN (22:49)
--- NOTE | 2021-10-20 22:50 | NUR ---
Poison Control called, stated to order CMP, ethylene glycol and methanol level. Ordered already by Dr Ann; CMP ordered for 6 am 10/21/21
[2021-10-20 23:00] VITALS: BP 151/49
--- NOTE | 2021-10-20 23:15 | NUR ---
PTS DAD IN THE UNIT, WATCHING PT OUTSIDE THE ROOM/WINDOW.NOTIFIED PTS MEG BARBER THAT PT IS PUI AT THIS TIME DUE TO PCR COVID TEST NOT BACK YET.UPDATE GIVEN.QUESTIONS ANSWERED
[2021-10-20 23:58] LABS: CHOL/HDL RATIO 6.7 (1-4.5)
[2021-10-21] VITALS (20 sets, daily range): BP systolic 133–173; BP diastolic 36–109
--- NOTE | 2021-10-21 00:43 | NUR ---
PT AWAKE; STILL STARING BLANKLY.ANTIDOTE INFUSING AT THIS TIME.NO SOB NOTED.WILL CONTINUE TO CLOSELY MONITOR PT
--- NOTE | 2021-10-21 02:41 | NUR ---
PT STILL AWAKE; MUMBLING TALKING TO HIMSELF.NO PAIN NOTED.NO SOB ON ROOM AIR
--- NOTE | 2021-10-21 03:51 | NUR ---
PHONE CALL FROM POISON [facility], UPDATE GIVEN.REQUESTED TO ORDER ABG FOR FOLLOW UP, ORDERED.TO LET DR DON BE AWARE THAT PER POISON CONTROL, ANTIZOL SHOULD BE ADMINISTERED Q 12HRS X 4 DOSES 10MG/KG.WILL ENDORSED.
--- NOTE | 2021-10-21 04:00 | NUR ---
PT TRYING TO GET OUT OF BED.REORIENTED.PT APPEARS UNABLE TO COMPREHEND.NEW ORDER FOR BILATERAL SOFT WRIST RESTRAINTS IN PLACE. PHONE CALL TO PTS DAD BARBER,MADE AWARE THAT PT TRYING TO GET OUT OF BED AND THAT ESTEFANY SOFT WRIST RESTRAINTS IN PLACE.HE IS AGREEABLE WITH THE RESTRAINTS.PER BARBER,PT IS NOT ON HIS RIGHT MIND AND THAT HE MIGHT FALL.
[2021-10-21 05:36] LABS: BASOPHILS % (AUTO) 0.3 % (0.0-2.0); EOSINOPHILS % (AUTO) 0.2 % (0.0-4.0); HEMOGLOBIN 14.9 g/dL (12.0-18.0); LYMPHOCYTES # (AUTO) 0.9 K/uL (2.0-11.5); LYMPHOCYTES % (AUTO) 8.8 % (20.5-51.1); MEAN CORPUSCULAR HEMOGLOBIN 32 pg (27-31); MEAN CORPUSCULAR HGB CONC 34 g/dL (33-37); MEAN CORPUSCULAR VOLUME 94.3 fL (80-94); MONOCYTES # (AUTO) 0.6 K/uL (0.8-1.0); MONOCYTES % (AUTO) 6.4 % (1.7-9.3); NEUTROPHILS # (AUTO) 8.4 K/uL (1.8-7.7); NEUTROPHILS % (AUTO) 84.3 % (42.2-75.2); PLATELET COUNT (AUTO) 210 K/uL (140-450); RED BLOOD CELL COUNT(AUTO) 4.67 MIL/uL (4.20-6.10); RED CELL DISTRIBUTION WIDTH 14.1 % (11.6-13.7)
--- NOTE | 2021-10-21 05:56 | NUR ---
PT STILL AWAKE,MUMBLING,INCOHERENT.INCONTINENT OF URINE.PT CLEANED.NO PAIN NOTED.NO SOB NOTED
[2021-10-21 06:51] LABS: ALBUMIN 4.1 g/dL (3.4-5.0); ANION GAP 10.6 (8-16); CARBON DIOXIDE 28.9 mmol/L (21-32); CREATININE 0.9 mg/dL (0.6-1.3); POTASSIUM 3.5 mmol/L (3.5-5.1); TOTAL BILIRUBIN 0.7 mg/dL (0.0-1.0)
--- NOTE | 2021-10-21 07:17 | NUR ---
RECEIVED BESIDE REPORT FROM BELIA RUIZ FOR CONTINUITY OF CARE. PT IS AWAKE, EYES OPEN, SPEECH INCOMPREHENSIBLE. PERRL 5MM. SOFT WRIST RESTRAINTS TO BILATERAL WRIST. R HAND 20G IV IN PLACE, PATENT, INTACT. L HAND [address], PATENT, INTACT, RUNNING NS AT 175 ML/HR. ROOM AIR. LUNG SOUNDS CLEAR THROUGHOUT. HEART SOUNDS S1&2. BOWEL SOUNDS ACTIVE IN ALL 4 QUADRANTS. NO BAGLEY IN PLACE. SKIN INTACT. NO EDEMA. CAP REFILL <3 SEC. DROPLET PRECAUTIONS IN PLACE FOR PENDING PCR. BED IN LOWEST POSITION, CALL LIGHT WITHIN REACH, ALL NEEDS MET AT THIS TIME.
[2021-10-21] MEDS: DEXT 5% /NACL 0.9% 1,000 ML IV SCH ×3 (07:40→19:29)
--- NOTE | 2021-10-21 08:00 | NUR ---
PT'S HOME MEDICATIONS GIVEN TO SERA AT PHARMACY TO BE STORED.
--- NOTE | 2021-10-21 08:47 | NUR ---
PATIENT HAS BEEN SCREENED AND CATEGORIZED HIGH NUTRITION RISK. PATIENT WILL BE SEEN WITHIN 1-2 DAYS OF ADMISSION. 10/21/21-10/22/21 REFERRAL RECEIVED FOR REFUSE TO EAT OVER [address]
[2021-10-21] MEDS: levETIRAcetam 500 MG in NACL 0.9% 100 ML IV SCH ×2 (09:42→21:50)
[2021-10-21] MEDS: PANTOPRAZOLE 40 MG INJ VIAL IVP SCH (09:42)
[2021-10-21 10:30] LABS: BARBITURATE, URINE NEGATIVE ng/ml (NEG <=200); BENZODIAZEPINE, URINE NEGATIVE ng/mL (NEG <=200); CANNABINOID, URINE NEGATIVE ng/mL (NEG <=50); COCAINE, URINE NEGATIVE ng/mL (NEG <=300); OPIATE, URINE NEGATIVE ng/mL (NEG <=2000); PHENCYCLIDINE SCREEN,URINE NEGATIVE ng/mL (NEG <=25)
--- NOTE | 2021-10-21 10:37 | NUR ---
DC PLANNIN YRS OLD MALE PATIENT WAS ADMITTED FROM HOME WITH A DX OF INTENTIONAL OVERDOSE, METABOLIC ACIDOSIS, NEW ONSET OF SEIZURE. PATIENT HAS A HX OF DEPRESSION (ON DULOXETINE). EKG SHOWED 131 TACHYCARDIA. ADMINISTERED IVF, KEPPRA IV FOR SEIZURE. CONSULTED WITH NEPHRO, CARDIO, NEURO AND PULMO. DC PLAN TO GO HOME WHEN STABLE. CM TO FOLLOW Addendum: 10/22/21 at 1647 by Lucero Sellers RN DC PLANNING: PT DOWNGRADE FROM ICU AWAKE ,A/OX4 ON ROOM AIR SATING 99% NEURO FOLLOWING EEG ORDERED. AWAITING FOR PSYCH EVALUATION. CM TO FOLLOW
--- NOTE | 2021-10-21 11:07 | NUR ---
RECEIVED CALLED FROM POISON CONTROL, SPOKE WITH NAYA. RECOMMENDATIONS TO CONTINUE WITH ANTIZOL AND TO CHECK LABS FOR SERUM OSMOLALITY.
[2021-10-21] MEDS: NACL 0.9% IV SCH (12:00)
[2021-10-21] MEDS: FOMEPIZOLE IV SCH (12:00)
--- NOTE | 2021-10-21 13:30 | NUR ---
DR LUGO AT BEDSIDE EXAMINING PT
--- NOTE | 2021-10-21 13:40 | NUR ---
SEIZURE FORM FAXED TO [facility] PER DR LUGO. [phone]
--- NOTE | 2021-10-21 14:03 | NUR ---
XRAY AT BEDSIDE
--- NOTE | 2021-10-21 15:13 | NUR ---
PT REQUESTED TO USE URINAL, AND VOIDED IN THE URINAL. WHEN PROMPTED, PT RECALLED HIS NAME, LOCATION, DAY OF THE WEEK, AND SITUATION. "[facility], THURSDAY". PT STATES HE IS HERE BECAUSE HE "TRIED TO GO TO SLEEP AND DID NOT WANT TO WAKE UP". PT IS AAOX4, FOLLOWING COMMANDS. CALL LIGHT WITHIN REACH. ALL NEEDS ARE MET AT THIS TIME. WILL CONTINUE TO MONITOR.
--- NOTE | 2021-10-21 17:45 | NUR ---
REPORT GIVEN VIA PHONE TO ULI VALDEZ RN.
[2021-10-21] MEDS ORDERED: DEXTROSE 50% 50 ML SYR IVP PRN (18:30)
--- NOTE | 2021-10-21 18:30 | NUR ---
PT TRANSFERRED TO [facility] BED 109B. NO ACUTE DISTRESS AT THIS TIME.
--- NOTE | 2021-10-21 18:31 | NUR ---
BLOOD SUGAR CHECK 51, DEXTROSE 50% IV PUSH GIVEN.
--- NOTE | 2021-10-21 18:45 | NUR ---
RECEIVED REPORT AND RECEIVED PT FROM ICU. PT IS IN STABLE CONDITION. IV IN R HAND 20G. PT IS ON TELE. PT IS COOPERATIVE AND AOX4. NO S/S OF DISTRESS. PT BREATHING IS EVEN AND UNLABORED.
--- NOTE | 2021-10-21 19:32 | NUR ---
ENDORSED PT TO SPOOLER OPERATOR AUTOMATIC NURSE FOR CONTINUITY OF CARE.
--- NOTE | 2021-10-21 19:34 | NUR ---
RECEIVED REPORT OF PT IN STABLE CONDITION.IVF OF D5NS AT 175 ML/H RESTARTED AND INFUSING WELL VIA IV LINE IN RT HAND W/#20G.TELE IS ON.NO C/O PAIN OR ANY DISCOMFORT AT THIS TIME. WILL CONT.MONITORING.
[2021-10-21] MEDS ORDERED: levETIRAcetam 100 MG/ML VIAL IV ONE (21:22)
[2021-10-22] VITALS: BP 121/79
--- NOTE | 2021-10-22 | NUR ---
SLEEPING.NO DISTRESS NOTED.HR IS SR.VS STABLE.SITTER AT BEDSIDE.
[2021-10-22] MEDS: NACL 0.9% IV SCH ×2 (00:20→12:07)
[2021-10-22] MEDS: FOMEPIZOLE IV SCH ×2 (00:20→12:07)
[2021-10-22 04:00] VITALS: BP 108/69
--- NOTE | 2021-10-22 04:00 | NUR ---
HELED HIM TO GO TO BATHROOM.NO S/WS OF ANY DISTRESS NOTED.WILL CONTINUE MONITORING.HR IS SR
--- NOTE | 2021-10-22 06:26 | NUR ---
SLEPT WELL.NO DISTRESS NOTED AT PRESENT TIME.IVF IS IN PROGRESS.SITTER AT BEDSIDE.
[2021-10-22] MEDS: DEXT 5% /NACL 0.9% 1,000 ML IV SCH ×2 (06:38→12:36)
[2021-10-22 07:02] LABS: BASOPHILS % (AUTO) 0.7 % (0.0-2.0); EOSINOPHILS # (AUTO) 0.2 K/uL (0-0.4); EOSINOPHILS % (AUTO) 3.1 % (0.0-4.0); HEMOGLOBIN 13.9 g/dL (12.0-18.0); LYMPHOCYTES # (AUTO) 1.8 K/uL (2.0-11.5); LYMPHOCYTES % (AUTO) 28.7 % (20.5-51.1); MEAN CORPUSCULAR HEMOGLOBIN 32 pg (27-31); MEAN CORPUSCULAR HGB CONC 34 g/dL (33-37); MONOCYTES # (AUTO) 0.5 K/uL (0.8-1.0); MONOCYTES % (AUTO) 7.9 % (1.7-9.3); NEUTROPHILS # (AUTO) 3.7 K/uL (1.8-7.7); NEUTROPHILS % (AUTO) 59.6 % (42.2-75.2); PLATELET COUNT (AUTO) 176 K/uL (140-450); RED BLOOD CELL COUNT(AUTO) 4.36 MIL/uL (4.20-6.10); RED CELL DISTRIBUTION WIDTH 13.9 % (11.6-13.7); WHITE BLOOD COUNT (AUTO) 6.2 K/uL (4.8-10.8)
--- NOTE | 2021-10-22 07:22 | NUR ---
REPORT GIVEN TO AM SHIFT.PT'S CONDITION IS STABLE.
[2021-10-22 07:23] LABS: ANION GAP 14.5 (8-16); CARBON DIOXIDE 27.7 mmol/L (21-32); CREATININE 0.8 mg/dL (0.6-1.3); POTASSIUM 3.2 mmol/L (3.5-5.1); TOTAL BILIRUBIN 0.8 mg/dL (0.0-1.0)
[2021-10-22 08:00] VITALS: BP 106/71
[2021-10-22] MEDS: PANTOPRAZOLE 40 MG INJ VIAL IVP SCH (08:17)
[2021-10-22] MEDS: KCL 20 MEQ/WATER INJ PREMIX 200 ML IV PRN (08:18)
[2021-10-22] MEDS: levETIRAcetam 500 MG in NACL 0.9% 100 ML IV SCH ×2 (08:48→22:00)
--- NOTE | 2021-10-22 09:20 | NUR ---
PT ON BED CALM NOT ON ANY DISCOMFORT OR DISTRESS. ALL SAFETY MEASURE IN PLACE. MONITOR CLOSELY.
[2021-10-22] MEDS: CALCIUM CARB/VIT-D 500 MG/200 IU 1 TAB PO SCH ×2 (09:46→21:39)
[2021-10-22] MEDS ORDERED: POTASSIUM CHLORIDE 10 MEQ TABER PO SCH (10:00)
--- NOTE | 2021-10-22 11:08 | NUR ---
Patient is alert, given AM medication, able to eat, diet changed to regular. Seen by MD. spoke to Phillip at poison control and given update. Recommended to repeat Methyl Alcohol, and Ethylene Glycol and Serum osmolality in am. Kdur 40 meq po given and IV 20 meq kcl iv given. New IV inserted in the left arm.
[2021-10-22 12:00] VITALS: BP 109/66
--- NOTE | 2021-10-22 13:00 | NUR ---
PT ON BED ASLEEP MONITOR FREQUENTLY.
[2021-10-22] MEDS ORDERED: NICOTINE TRANSD SYS 14 MG/24 HR PATCH TD ONE (14:09)
[2021-10-22] MEDS: NICOTINE TRANSD SYS 14 MG/24 HR PATCH TD SCH (14:11)
--- NOTE | 2021-10-22 14:53 | NUR ---
10/22/21 RD INITIAL ASSESSMENT COMPLETED PLEASE REFER TO NUTRITION ASSESSMENT UNDER CARE ACTIVITY FOR ESTIMATED NUTRITIONAL NEEDS. 1. CONTINUE REGULAR DIET TOLERATED 2. RECOMMEND ENSURE CLEAR BID -WILL PROVIDE 480 KCAL AND [address] TO FOLLOW-UP 3-5 DAYS, MODERATE RISK [address]
[2021-10-22 15:06] LABS: T4 (THYROXINE) 8.5 ug/dL (4.5-12.0)
--- NOTE | 2021-10-22 15:27 | NUR ---
PT ASLEEP SOUNDLY. IV INFUSING AT 175 CC/HOUR NO S/S OF FLUID OVER LOAD. IV SITE INTACT AND NO S/S OF INFECTION.
[2021-10-22 16:00] VITALS: BP 103/68
[2021-10-22] MEDS: NACL 0.9% 1,000 ML IV SCH (16:47)
--- NOTE | 2021-10-22 17:20 | NUR ---
PT ON BED ASLEEP NO DISTRESS NOTED. ALL SAFETY MEASURE IN PLACE. MONITOR FREQUENTLY.
--- NOTE | 2021-10-22 19:05 | NUR ---
PT ON BED ASLEEP ON STABLE CONDITION. REPORT GIVEN TO COMPLIANCE EXAMINER NURSE FOR CONTINUITY OF CARE.
--- NOTE | 2021-10-22 19:15 | NUR ---
RECEIVED REPORT FROM AM NURSE. PATIENT IS AWAKE ON BED RESTING. NO ACUTE DISTRESS NOTED. BREATHING REGULAR UNLABORED. ON ROOM AIR. IVF NS INFUSING PER MD ORDERED. SAFETY MEASURES IN PLACE. CALL LIGHT WITHIN REACH. WILL CONTINUE TO MONITOR.
[2021-10-22 20:00] VITALS: BP 113/66
[2021-10-23] VITALS: BP 103/68
[2021-10-23] MEDS: FOMEPIZOLE IV SCH ×2
[2021-10-23] MEDS: NACL 0.9% IV SCH ×2
--- NOTE | 2021-10-23 02:09 | NUR ---
PATIENT AWAKE APPEARS TO BE SLEEPING NO INTER REACTION WITH THE NURSE AT TIMES COVERS HIS FACE WITH COVER. CESAR IS A MED/SURG PATIENT. HAS A 20 GA IN RIGHT F.A INFUSING 5 CC HOUR. RECEIVING IVPBS. PATIENT ON ROOM AIR LUNGS CLEAR PATIENT IS MRSA - rapid -.NO CHANGES AT THIS TIME.
[2021-10-23 04:00] VITALS: BP 115/64
[2021-10-23 06:54] LABS: BASOPHILS % (AUTO) 0.6 % (0.0-2.0); EOSINOPHILS # (AUTO) 0.2 K/uL (0-0.4); EOSINOPHILS % (AUTO) 3.2 % (0.0-4.0); HEMOGLOBIN 14.5 g/dL (12.0-18.0); LYMPHOCYTES # (AUTO) 2.1 K/uL (2.0-11.5); LYMPHOCYTES % (AUTO) 34.2 % (20.5-51.1); MEAN CORPUSCULAR HEMOGLOBIN 32 pg (27-31); MEAN CORPUSCULAR HGB CONC 34 g/dL (33-37); MEAN CORPUSCULAR VOLUME 93.4 fL (80-94); MONOCYTES # (AUTO) 0.5 K/uL (0.8-1.0); MONOCYTES % (AUTO) 8.5 % (1.7-9.3); NEUTROPHILS # (AUTO) 3.2 K/uL (1.8-7.7); NEUTROPHILS % (AUTO) 53.5 % (42.2-75.2); PLATELET COUNT (AUTO) 159 K/uL (140-450); RED CELL DISTRIBUTION WIDTH 13.3 % (11.6-13.7)
[2021-10-23 07:09] LABS: ANION GAP 9.6 (8-16); CARBON DIOXIDE 29.6 mmol/L (21-32); CREATININE 0.8 mg/dL (0.6-1.3); POTASSIUM 3.2 mmol/L (3.5-5.1); TOTAL BILIRUBIN 0.6 mg/dL (0.0-1.0)
--- NOTE | 2021-10-23 07:10 | NUR ---
RECEIVE REPORT FROM MENTAL HEALTH CLINICIAN NURSE FOR CONTINUITY OF PATIENT CARE. PATIENT SLEEPING. NO ACUTE DISTRESS NOTED. PATIENT ON ROOM AIR. PATIENT 5150 SITTER AT BEDSIDE. ALL SAFETY MEASURES IN PLACE. CALL LIGHT WITHIN REACH. WILL CONTINUE TO MONITOR.
[2021-10-23 08:00] VITALS: BP 120/55
[2021-10-23] MEDS: NACL 0.9% 1,000 ML IV SCH ×2 (09:20→22:27)
[2021-10-23] MEDS: PANTOPRAZOLE 40 MG INJ VIAL IVP SCH (09:57)
[2021-10-23] MEDS: CALCIUM CARB/VIT-D 500 MG/200 IU 1 TAB PO SCH ×2 (09:58→21:20)
[2021-10-23] MEDS: levETIRAcetam 500 MG in NACL 0.9% 100 ML IV SCH ×2 (09:59→22:26)
--- NOTE | 2021-10-23 09:59 | NUR ---
PATIENT AWAKE AND ALERT. NO ACUTE DISTRESS NOTED. PATIENT ON ROOM AIR. PATIENT DENIES ANY PAIN OR THOUGHTS OF HURTING HIMSELF. PATIENT 5150 SITTER AT BEDSIDE. ALL SAFETY MEASURES IN PLACE. CALL LIGHT WITHIN REACH. WILL CONTINUE TO MONITOR.
[2021-10-23] MEDS: CALCIUM CARB 600 MG TAB PO SCH (10:01)
--- NOTE | 2021-10-23 11:56 | NUR ---
PATIENT AWAKE AND ALERT. NO ACUTE DISTRESS NOTED. PATIENT ON ROOM AIR. PATIENT DENIES ANY PAIN OR THOUGHTS OF HURTING HIMSELF. PATIENT 5150 SITTER AT BEDSIDE. DAD AT BEDSIDE. ALL SAFETY MEASURES IN PLACE. CALL LIGHT WITHIN REACH. WILL CONTINUE TO MONITOR.
[2021-10-23] MEDS: KCL 20 MEQ/WATER INJ PREMIX 200 ML IV PRN (12:14)
--- NOTE | 2021-10-23 13:30 | NUR ---
PATIENT HAD PSYCH CONSULT.
--- NOTE | 2021-10-23 15:00 | NUR ---
DC PLANNING PATIENT IS A 31 YEAR OLD MALE ADMITTED ON THE [facility]/ED ON 10/20/2021 DUE TO DTS AND SI. PATIENT HAS HISTORY OF DEPRESSION AND SUICIDAL ATTEMPTS. PATIENT IS ON A HOLD DUE TO PATIENT ATTEMPTING TO OVERDOSE ON BENADRYL AND ANTIFREEZE. SW MET WITH PATIENT AT BEDSIDE,TO DISCUSS AND GATHER HIS COLLATERAL INFORMATION. PATIENT WAS ALERT AND COHERENT ABLE TO DISCUSS HIS CONCERNS ABOUT HIS HOLD. PATIENT REPORTED THAT HE HAD AN ASSESSMENT WITH PSYCHIATRIST EARLIER TODAY. PATIENT WAS ABLE TO ACKNOWLEDGE HIS NEED FOR MENTAL HEALTH SERVICES DUE TO DEPRESSION AND SOME POSSIBLE GRIEVING ISSUES. SW PROVIDED PATIENT WITH MENTAL HEALTH RESOURCES AND EDUCATED PATIENT ON THE IMPORTANCE OF CONSISTENCY WITH THERAPY AND MEDICATION INTAKE. PATIENT AGREED AND STATED THAT HE HAS A PSYCHIATRIST AND THERAPIST AT [facility] AND THAT HAS AN SCHEDULED APPOINTMENT WITH HIS THERAPIST ON 10/24/2021 AT 2:00PM. PATIENT STATED THAT HE HAS NO ADVANCE DIRECTIVE AND WAS NOT INTERESTED ON GETTING INFORMATION PACKET PROVIDED BY MARGARETTE. PATIENT REPORTED THAT HE HAS NO ISSUES TAKING OR GETTING HIS MEDICATIONS AND HE IS ASSISTED BY HIS FATHER WITH TRANSPORTATION AFTER DISCHARGE. PATIENT REPORTED HAVING A HEALTH PROVIDER FOR HIS MEDICAL NEEDS AND HE WILL BE MAKING AN APPOINTMENT TO FOLLOW UP AFTER HIS DC. SW WILL FOLLOW NEEDED. DC PLANNING MARGARETTE MET WITH DIANA Robles OFFICER TYRELL TO DISCUSS PATIENT CURRENT HOLD EXPIRING AFTER 19:00. PER OFFICER SHE MEET PATIENT AND ACCESS FOR 5150 HOLD RE-NEW. PER OFFICER PATIENT DO NOT MEET CRITERIA FOR HOLD AT THIS TIME. MARGARETTE THANKED HER FOR INFORMATION. MARGARETTE CONTACTED ENDORSE INFORMATION TO JOSEPH GAGE.
--- NOTE | 2021-10-23 17:50 | NUR ---
PATIENT AWAKE AND ALERT. NO ACUTE DISTRESS NOTED. PATIENT ON ROOM AIR. PATIENT DENIES ANY PAIN AT THIS TIME. PATIENT 5150 SITTER AT BEDSIDE. ALL SAFETY MEASURES IN PLACE. CALL LIGHT WITHIN REACH. WILL CONTINUE TO MONITOR.
--- NOTE | 2021-10-23 18:37 | NUR ---
Patients's 5150 to at 19:00 today. Patient was re-evaluated by PD who states did not meet criteria for a new 5150. S/W patient's RN Ce who stated the same. Will wait for SW to re-eval in the AM
--- NOTE | 2021-10-23 19:10 | NUR ---
ENDORSED TO EXECUTOR OF ESTATE NURSE FOR CONTINUITY OF PATIENT CARE. PATIENT STABLE.
--- NOTE | 2021-10-23 19:12 | NUR ---
RECEIVED PATIENT REPORT FROM AM SHIFT NURSE FOR CONTINUITY OF PATIENT CARE. PATIENT IN BED AWAKE, ALERT AND VERBALLY RESPONSIVE. NO S/S OF ACUTE DISTRESS NOTED. DENIES ANY PAIN OR DISCOMFORT AT THIS TIME. PATIENT ON ROOM AIR. PATIENT 5150 SITTER AT BEDSIDE. ALL SAFETY MEASURES IN PLACE. CALL LIGHT WITHIN REACH. WILL CONTINUE TO MONITOR.
[2021-10-23 19:14] LABS: ALBUMIN 3.4 g/dL (3.4-5.0); ANION GAP 8.1 (8-16); CARBON DIOXIDE 33.5 mmol/L (21-32); POTASSIUM 3.6 mmol/L (3.5-5.1); TOTAL BILIRUBIN 0.6 mg/dL (0.0-1.0)
[2021-10-23 20:00] VITALS: BP 115/75
--- NOTE | 2021-10-23 20:00 | NUR ---
REVIEWED PLAN OF CARE WITH KIRBY VALENCIA LABORATORY TECHNOLOGY TEACHER AND JENNIFER GIBBS LABORATORY TECHNOLOGY TEACHER ; WILL CONTINUE WITH PLAN OF CARE.
--- NOTE | 2021-10-23 21:22 | NUR ---
ADMINISTERED SCHEDULE MEDICATIONS PER MD ORDER. TOLERATED WELL. NO ASE NOTED. ALL SAFETY MEASURES IN PLACE. SITTER ON THE DOOR SIDE. CALL LIGHT WITHIN REACH. WILL CONTINUE TO MONITOR.
--- NOTE | 2021-10-23 22:45 | NUR ---
RECD CALL FROM POISON CONTROL STAFFDIANA. UPDATED ON BLOOD CHEMISTRY RESULT DONE ON THE PATIENT. WILL CALL AGAIN TOMORROW TO FOLLOW ON THE STATUS OF THE PATIENT LATEST TEST.
--- NOTE | 2021-10-23 23:00 | NUR ---
RESTING IN BED, VERBALIZED FEELING UNCOMFORTABLE WITH IV SALINE LOCK AT THE RIGHT FOREARM G20. TAKEN OUT BY JOSEPH HERNNADEZ. WHEN INQUIRED IF HE HAS THOUGHTS OF HURTING HIMSELF, SHAKES HEAD AND STATED, "NO".
--- NOTE | 2021-10-24 01:00 | NUR ---
SLEEPING COMFORTABLY IN BED, RESPIRATION EVEN AND UNLABORED. NO APPEARANCE OF PAIN OR DISCOMFORT NOTED. SITTER AT THE DOOR MONITORING PATIENT NEAR DOOR.
[2021-10-24 01:22] LABS: ALBUMIN 3.2 g/dL (3.4-5.0); ANION GAP 10.7 (8-16); CARBON DIOXIDE 30.6 mmol/L (21-32); CREATININE 0.9 mg/dL (0.6-1.3); POTASSIUM 3.3 mmol/L (3.5-5.1); TOTAL BILIRUBIN 0.5 mg/dL (0.0-1.0)
--- NOTE | 2021-10-24 03:00 | NUR ---
K LEVEL - 3.3, WILL MEDICATE PER MD ORDER.
[2021-10-24 04:00] VITALS: BP 118/72
--- NOTE | 2021-10-24 05:00 | NUR ---
CHECKED PATIENT STILL SLEEPING COMFORTABLY IN BED. NO SEIZURE, NO SIGNS OF SUICIDAL IDEATION NOTED.
--- NOTE | 2021-10-24 07:14 | NUR ---
CONDITION REMAIN STABLE. ENDORSED TO AM SHIFT NURSE FOR CONTINUITY OF CARE.
--- NOTE | 2021-10-24 07:15 | NUR ---
RECEIVE REPORT FROM SIPHON OPERATOR NURSE FOR CONTINUITY OF PATIENT CARE. PATIENT AWAKE AND ALERT. NO ACUTE DISTRESS NOTED. ALL SAFETY MEASURES IN PLACE. CALL LIGHT WITHIN REACH. WILL CONTINUE TO MONITOR.
[2021-10-24 07:22] LABS: BASOPHILS % (AUTO) 0.6 % (0.0-2.0); EOSINOPHILS # (AUTO) 0.2 K/uL (0-0.4); EOSINOPHILS % (AUTO) 2.5 % (0.0-4.0); HEMATOCRIT 42.9 % (36-52); HEMOGLOBIN 14.9 g/dL (12.0-18.0); LYMPHOCYTES # (AUTO) 1.8 K/uL (2.0-11.5); LYMPHOCYTES % (AUTO) 29.4 % (20.5-51.1); MEAN CORPUSCULAR HEMOGLOBIN 32 pg (27-31); MEAN CORPUSCULAR HGB CONC 35 g/dL (33-37); MEAN CORPUSCULAR VOLUME 92.4 fL (80-94); MONOCYTES # (AUTO) 0.5 K/uL (0.8-1.0); MONOCYTES % (AUTO) 8.8 % (1.7-9.3); NEUTROPHILS # (AUTO) 3.6 K/uL (1.8-7.7); NEUTROPHILS % (AUTO) 58.7 % (42.2-75.2); PLATELET COUNT (AUTO) 174 K/uL (140-450); RED BLOOD CELL COUNT(AUTO) 4.65 MIL/uL (4.20-6.10); RED CELL DISTRIBUTION WIDTH 13.1 % (11.6-13.7); WHITE BLOOD COUNT (AUTO) 6.2 K/uL (4.8-10.8)
[2021-10-24 07:38] LABS: ALBUMIN 3.2 g/dL (3.4-5.0); ANION GAP 7.4 (8-16); CARBON DIOXIDE 31.9 mmol/L (21-32); CREATININE 0.9 mg/dL (0.6-1.3); POTASSIUM 3.3 mmol/L (3.5-5.1); TOTAL BILIRUBIN 0.6 mg/dL (0.0-1.0)
[2021-10-24] MEDS: CALCIUM CARB/VIT-D 500 MG/200 IU 1 TAB PO SCH (08:22)
[2021-10-24] MEDS: PANTOPRAZOLE 40 MG INJ VIAL IVP SCH (08:22)
[2021-10-24] MEDS: CALCIUM CARB 600 MG TAB PO SCH (08:22)
[2021-10-24] MEDS: NICOTINE TRANSD SYS 14 MG/24 HR PATCH TD SCH (08:23)
--- NOTE | 2021-10-24 08:31 | NUR ---
PATIENT AWAKE AND ALERT. NO ACUTE DISTRESS NOTED. PATIENT ON ROOM AIR. PATIENT DENIES ANY PAIN AT THIS TIME. SCHEDULED MEDICATION GIVEN. ALL SAFETY MEASURES IN PLACE. CALL LIGHT WITHIN REACH. WILL CONTINUE TO MONITOR.
--- NOTE | 2021-10-24 10:48 | NUR ---
PATIENT AWAKE AND ALERT. NO ACUTE DISTRESS NOTED. PATIENT ON ROOM AIR. PATIENT DENIES ANY PAIN AT THIS TIME. ALL SAFETY MEASURES IN PLACE. CALL LIGHT WITHIN REACH. WILL CONTINUE TO MONITOR.
[2021-10-24] MEDS: levETIRAcetam 500 MG in NACL 0.9% 100 ML IV SCH (11:31)
[2021-10-24] MEDS ORDERED: KEP500 PO (14:31)
[2021-10-24] MEDS ORDERED: DULO30EC PO (14:31)
--- NOTE | 2021-10-24 14:45 | NUR ---
MD AT BEDSIDE. PATIENT AWAKE AND ALERT. NO ACUTE DISTRESS NOTED. PATIENT ON ROOM AIR. PATIENT DENIES ANY PAIN AT THIS TIME. ALL SAFETY MEASURES IN PLACE. CALL LIGHT WITHIN REACH. WILL CONTINUE TO MONITOR.
--- NOTE | 2021-10-24 15:54 | NUR ---
PATIENT AWAKE AND ALERT. NO ACUTE DISTRESS NOTED. DISCHARGE INFORMATION GIVEN. PATIENT SIGNED ALL DOCUMENTS. PATIENT VERBALIZE UNDERSTANDING. IV AND WRISTBAND REMOVED. IV CATHETER INTACT. PATIENT HAS ALL PERSONAL BELONGINGS. PATIENT WAITING FOR DAD TO PICK HIM UP.
--- NOTE | 2021-10-24 16:40 | NUR ---
PATIENT WHEELED TO FRONT LOBBY.
[2021-10-24] MEDS ORDERED: DULoxetine 30 MG CAPDR PO SCH (21:00)
[2021-10-25] MEDS ORDERED: NICOTINE TRANSD SYS 21 MG/24 HR PATCH TD SCH (09:00)
== END 2021-10-24 17:00 | disposition home or self-care (01) | DRG 917 ==
LOC: MED 16:56 → MMU 20:08 → MIC 22:01 → MTU 10-21 17:52
PROVIDERS: ADMIT Family Medicine; ATTEND Family Medicine
DX: T45.0X2A Poisoning by antiallergic and antiemetic drugs, intentional self-harm, initial encounter (principal); J96.00 Acute respiratory failure, unspecified whether with hypoxia or hypercapnia; G92.9 Unspecified toxic encephalopathy; E87.2 Acidosis; R45.851 Suicidal ideations; F33.2 Major depressive disorder, recurrent severe without psychotic features; E78.2 Mixed hyperlipidemia; G40.409 Other generalized epilepsy and epileptic syndromes, not intractable, without status epilepticus; Z20.822 Contact with and (suspected) exposure to COVID-19; E87.6 Hypokalemia; R74.01 Elevation of levels of liver transaminase levels; E83.51 Hypocalcemia; J45.909 Unspecified asthma, uncomplicated; Z91.51 Personal history of suicidal behavior; Y92.89 Other specified places as the place of occurrence of the external cause; Z79.899 Other long term (current) drug therapy
CPT/HCPCS: 36415; 36600; 71045; 80053; 80305; 81003; 82150; 82553; 82693; 82803; 83036; 83605; 83690; 83735; 83880; 83930; 84100; 84436; 84439; 84443; 84479; 84484; 84600; 85025; 85610; 85730; 87040; 87081; 93005; 96361; 96365; 96368; 96375; 99291; C9113; G0480; G0482; J1451; J1953; J2060; J3475; J3480; Q0092; U0003